=== PATIENT | female | born 1945 | race Caucasian/White ===

== ENCOUNTER 2017-12-13 22:46 | Emergency (ER) | payer MEDICAID ==
[~2017-12-13] VITALS: Ht 157.5 cm; Wt 55.0 kg
[2017-12-13] MEDS ORDERED: ACETAMINOPHEN 500MG TABLET PO ONE (23:45)
[2017-12-14 01:52] VITALS: BP 165/74
== END 2017-12-14 03:15 | disposition home or self-care (01) ==
LOC: ER 12-14 03:08
DX: S06.0X0A Concussion without loss of consciousness, initial encounter (principal); S00.03XA Contusion of scalp, initial encounter; E11.9 Type 2 diabetes mellitus without complications; I10 Essential (primary) hypertension; E78.00 Pure hypercholesterolemia, unspecified; W01.0XXA Fall on same level from slipping, tripping and stumbling without subsequent striking against object, initial encounter; Y93.89 Activity, other specified; Y92.89 Other specified places as the place of occurrence of the external cause; Y99.8 Other external cause status; Z96.659 Presence of unspecified artificial knee joint
CPT/HCPCS: 70450; 70486; 99284

== ENCOUNTER 2018-06-06 19:34 | Emergency (ER) | payer MEDICAID ==
[~2018-06-06] VITALS: Ht 152.4 cm; Wt 57.0 kg
[2018-06-06 20:44] VITALS: BP 150/67
[2018-06-06 22:10] LABS: CLARITY URINE CLEAR (CLEAR); COLOR URINE YELLOW (YELLOW); KETONES URINE NEGATIVE (NEGATIVE); LEUKOCYTE ESTERASE URINE 1+ (NEGATIVE); NITRITE URINE NEGATIVE (NEGATIVE); OCCULT BLOOD URINE NEGATIVE (NEGATIVE); PH URINE 6.5 (4.5-8.0); PROTEIN URINE NEGATIVE (NEGATIVE); SPECIFIC GRAVITY URINE 1.007 (1.005-1.030); UROBILINOGEN URINE 0.2 E.U./dL (0.2-1.0)
== END 2018-06-07 02:31 | disposition left against medical advice (07) ==
LOC: ER 19:34
DX: Z53.21 Procedure and treatment not carried out due to patient leaving prior to being seen by health care provider (principal); E11.9 Type 2 diabetes mellitus without complications; F32.9 Major depressive disorder, single episode, unspecified; E78.00 Pure hypercholesterolemia, unspecified

== ENCOUNTER 2018-09-30 05:23 | Day surgery (SDC) | payer MEDICAID ==
[~2018-09-30] VITALS: Ht 152.4 cm; Wt 56.7 kg
[2018-09-30] MEDS ORDERED: BUPIVACAINE HCL/PF 0.5% (5MG/ML) 10ML ONE (07:26)
[2018-09-30] MEDS ORDERED: SKIN ADHESIVE 0.7 GM EA TOP ONE (07:26)
[2018-09-30] MEDS ORDERED: MIDAZOLAM HCL 2 MG/2 ML VIAL ONE (08:11)
[2018-09-30] MEDS ORDERED: FENTANYL CITRATE/PF 50MCG/ML 2ML VIAL ONE (08:11)
[2018-09-30] MEDS ORDERED: ROCURONIUM BROMIDE 10MG/ML VIAL 5ML IV ONE (08:11)
[2018-09-30] MEDS ORDERED: PROPOFOL 200MG/20ML VIAL IV ONE (08:11)
[2018-09-30] MEDS ORDERED: LIDOCAINE HCL/PF 1% 10 MG/ML 5ML VIAL ONE (08:11)
[2018-09-30] MEDS ORDERED: DEXAMETHASONE 4MG/ML 1ML VIAL ONE (08:12)
[2018-09-30] MEDS ORDERED: ONDANSETRON HCL 4MG/2ML INJ ONE (08:12)
[2018-09-30] MEDS ORDERED: NEOSTIGMINE METHYLSULFATE 1MG/ML 10 ML VIAL ONE (08:54)
[2018-09-30] MEDS ORDERED: GLYCOPYRROLATE 0.2 MG/ML 2ML VIAL ONE (08:54)
[2018-09-30] MEDS ORDERED: KETOROLAC 30MG/ML VIAL ONE (09:03)
[2018-09-30] MEDS ORDERED: MEPERIDINE HCL/PF 25MG/ML CPJ IV PRN (09:45)
[2018-09-30] MEDS ORDERED: ONDANSETRON HCL 4MG/2ML INJ IV PRN (09:45)
[2018-09-30] MEDS ORDERED: LOSA50TA41 PO (11:41)
[2018-09-30] MEDS ORDERED: ATOR20TA65 PO (11:41)
[2018-09-30] MEDS ORDERED: BENA1TAB19 PO (11:41)
[2018-09-30] MEDS ORDERED: ASPI-1393 PO (11:41)
[2018-09-30] MEDS ORDERED: SITA1TBM4 PO (11:41)
[2018-09-30] MEDS ORDERED: CHOL200010 PO (11:41)
[2018-09-30] MEDS ORDERED: PARO10TA74 PO (11:41)
== END 2018-09-30 12:00 | disposition home or self-care (01) ==
LOC: OR 05:23
PROVIDERS: ATTEND Surgery
DX: K80.10 Calculus of gallbladder with chronic cholecystitis without obstruction (principal); I10 Essential (primary) hypertension; E11.9 Type 2 diabetes mellitus without complications; E78.00 Pure hypercholesterolemia, unspecified; F32.9 Major depressive disorder, single episode, unspecified; Z98.890 Other specified postprocedural states; Z79.82 Long term (current) use of aspirin; Z79.899 Other long term (current) drug therapy
CPT/HCPCS: 47562; 71045; 73706; 82962; 88304; 93005; G0168; J1100; J1885; J2250; J2405; J2704; J2710; J3010; J3490; J7030

== ENCOUNTER 2018-12-05 10:27 | Inpatient (IN) | payer MEDICAID ==
[~2018-12-05] VITALS: Ht 137.2 cm; Wt 51.3 kg
[~2018-12-05 10:27] MED LIST: ASPI-1393 PO; ATOR20TA65 PO; BENA1TAB19 PO; CHOL200010 PO; LOSA50TA41 PO; PARO10TA74 PO; SITA1TBM4 PO
[2018-12-05 11:22] LABS: BASOPHILS % 0.5 % (0.0-2.0); EOSINOPHILS % 0.5 % (0.0-5.0); HEMATOCRIT. 39.7 % (36.0-48.0); HEMOGLOBIN. 13.6 g/dL (12.0-16.0); LYMPHOCYTES % 10.5 % (20.0-50.0); MEAN CORPUSCULAR HEMOGLOBIN 31.2 pg (28.0-32.0); MEAN CORPUSCULAR VOLUME 91.3 fL (81.0-99.0); MEAN PLATELET VOLUME 8.7 fl (7.4-10.4); MONOCYTES % 3.9 % (2.0-8.0); NEUTROPHILS % 84.6 % (40.0-76.0); PLATELET 328 x1000/uL (130-400); RED BLOOD CELL COUNT 4.35 mill/uL (4.2-5.4); RED CELL DISTRIBUTION WIDTH 13.2 % (11.6-14.6)
[2018-12-05 11:26] LABS: CHLORIDE 89 mEq/L (98-107)
[2018-12-05 11:32] LABS: ETHANOL BLOOD < 10 mg/dL
[2018-12-05 11:33] LABS: CLARITY URINE CLEAR (CLEAR); COLOR URINE YELLOW (YELLOW); KETONES URINE NEGATIVE (NEGATIVE); LEUKOCYTE ESTERASE URINE NEGATIVE (NEGATIVE); NITRITE URINE NEGATIVE (NEGATIVE); OCCULT BLOOD URINE NEGATIVE (NEGATIVE); PROTEIN URINE NEGATIVE (NEGATIVE); UROBILINOGEN URINE 0.2 E.U./dL (0.2-1.0)
[2018-12-05] MEDS ORDERED: METO-293 PO (11:46)
[2018-12-05 12:02] LABS: *AMPHETAMINES SCREEN URINE NEGATIVE (NEGATIVE); *BARBITURATES SCREEN URINE NEGATIVE (NEGATIVE); *BENZODIAZEPINES SCREEN URINE NEGATIVE (NEGATIVE); *COCAINE SCREEN URINE NEGATIVE (NEGATIVE)
[2018-12-05 12:03] LABS: CANNABINOID URINE SCREEN NEGATIVE (NEGATIVE); METHADONE URINE SCREEN NEGATIVE (NEGATIVE); OPIATES URINE SCREEN NEGATIVE (NEGATIVE); PHENCYCLIDINE URINE SCREEN NEGATIVE (NEGATIVE)
[2018-12-05] MEDS: CLOPIDOGREL 75MG TABLET PO SCH (14:54)
[2018-12-05 15:16] LABS: T4 FREE 1.13 ng/dL (0.76-1.46)
[2018-12-05 15:42] LABS: VITAMIN B12 SERUM 795 pg/mL (211-911)
[2018-12-05 15:46] LABS: FOLIC ACID (FOLATE) SERUM > 20.00 ng/mL (>5.38)
[2018-12-05 16:36] VITALS: BP 133/67
[2018-12-05] MEDS ORDERED: ONDANSETRON HCL 4MG/2ML INJ IV PRN (17:30)
[2018-12-05] MEDS ORDERED: IPRATROPIUM/ALBUTEROL 0.5-3(2.5)MG/3ML NEB NEB PRN (17:30)
[2018-12-05] MEDS ORDERED: ACETAMINOPHEN 325MG TABLET PO PRN (17:30)
[2018-12-05] MEDS ORDERED: CLONIDINE 0.1MG TABLET PO PRN (17:30)
[2018-12-05] MEDS ORDERED: SODIUM CHLORIDE 0.9% 1,000 ML IV SCH ×2 (17:45→18:00)
[2018-12-05] MEDS: ENOXAPARIN 30MG/0.3ML SYR SUBCUT SCH (18:09)
[2018-12-05 20:00] VITALS: BP 170/53
[2018-12-05] MEDS: ATORVASTATIN CALCIUM 20MG TABLET PO SCH (22:45)
[2018-12-05] MEDS: SODIUM CHLORIDE 0.9% 1,000 ML IV SCH (22:45)
[2018-12-06] VITALS: BP 116/84
[2018-12-06 04:00] VITALS: BP 135/61
[2018-12-06 07:40] LABS: BASOPHILS % 0.7 % (0.0-2.0); CHLORIDE 98 mEq/L (98-107); EOSINOPHILS % 1.1 % (0.0-5.0); HEMATOCRIT. 33.2 % (36.0-48.0); HEMOGLOBIN. 11.3 g/dL (12.0-16.0); LYMPHOCYTES % 17.6 % (20.0-50.0); MEAN CORPUSCULAR HEMOGLOBIN 30.8 pg (28.0-32.0); MEAN CORPUSCULAR VOLUME 90.8 fL (81.0-99.0); MEAN PLATELET VOLUME 8.3 fl (7.4-10.4); MONOCYTES % 8.7 % (2.0-8.0); NEUTROPHILS % 71.9 % (40.0-76.0); PLATELET 286 x1000/uL (130-400); RED BLOOD CELL COUNT 3.66 mill/uL (4.2-5.4); RED CELL DISTRIBUTION WIDTH 13.1 % (11.6-14.6)
[2018-12-06 08:00] VITALS: BP 143/66
[2018-12-06] MEDS: ASPIRIN 81MG EC TABLET PO SCH (08:44)
[2018-12-06] MEDS: LOSARTAN POTASSIUM 50 MG TABLET PO SCH (08:45)
[2018-12-06] MEDS: CLOPIDOGREL 75MG TABLET PO SCH (08:45)
[2018-12-06] MEDS: PAROXETINE HCL 10MG TABLET PO SCH (08:45)
[2018-12-06] MEDS: SODIUM CHLORIDE 0.9% 1,000 ML IV SCH (11:21)
[2018-12-06 15:41] VITALS: BP 140/39
[2018-12-06] MEDS: ENOXAPARIN 30MG/0.3ML SYR SUBCUT SCH (17:06)
[2018-12-06 20:00] VITALS: BP 136/56
[2018-12-06] MEDS: ATORVASTATIN CALCIUM 20MG TABLET PO SCH (21:56)
[2018-12-07 00:05] VITALS: BP 130/62
[2018-12-07 04:00] VITALS: BP 144/64
[2018-12-07 07:16] VITALS: BP 154/54
[2018-12-07] MEDS: ASPIRIN 81MG EC TABLET PO SCH (08:09)
[2018-12-07] MEDS: PAROXETINE HCL 10MG TABLET PO SCH (08:09)
[2018-12-07] MEDS: LOSARTAN POTASSIUM 50 MG TABLET PO SCH (08:09)
[2018-12-07] MEDS: CLOPIDOGREL 75MG TABLET PO SCH (08:09)
== END 2018-12-07 09:48 | disposition home health service (06) | DRG 45 ==
LOC: ER 10:27 → EDBEDREQ 13:25 → 7WST 13:28 → ENRESERV 14:49
PROVIDERS: ADMIT Internal Medicine; ATTEND Internal Medicine
DX: I63.9 Cerebral infarction, unspecified (principal); E87.1 Hypo-osmolality and hyponatremia; E11.9 Type 2 diabetes mellitus without complications; G81.94 Hemiplegia, unspecified affecting left nondominant side; E78.00 Pure hypercholesterolemia, unspecified; E78.5 Hyperlipidemia, unspecified; F32.9 Major depressive disorder, single episode, unspecified; I10 Essential (primary) hypertension; Z86.73 Personal history of transient ischemic attack (TIA), and cerebral infarction without residual deficits; Z96.659 Presence of unspecified artificial knee joint; R26.9 Unspecified abnormalities of gait and mobility; R53.81 Other malaise; Z79.84 Long term (current) use of oral hypoglycemic drugs
CPT/HCPCS: 36415; 70544; 70553; 71045; 80048; 80061; 80305; 80320; 81003; 82607; 82746; 83036; 83880; 84439; 84443; 84481; 84484; 92610; 93005; 93306; 93880; 93970; 97162; 97166; 99285; C1893; J1650; G0480